=== PATIENT | male | born 1970 | race Caucasian/White ===

== ENCOUNTER 2016-08-19 04:08 | Emergency (ER) | payer OTHER ==
[~2016-08-19] VITALS: Ht 193 cm; Wt 109.1 kg
[~2016-08-19 04:08] MED LIST: BLOOD PRESSURE PILL; CIPRO 500MG TA500 MG PO; DILAUDID 2MG TAB2 MG PO; FLOMAX 0.40.4 MG/CAP PO; MOTRIN 200200 MG/TAB PO; MOTRIN 800800 MG/TAB PO; NO HOME MEDICATIONS; NORCO 325 MG-7.1 TAB PO; PERCOCET 325 MG1 TA2 PO; PHENERGAN 25 TA25 MG PO; PHENERGAN25 MG RC; TYLENOL 325MG325 MG PO; VICODIN 5/300 PO; ZOFRAN 4MG T4 MG/TAB PO; ZOFRAN ODT4 MG PO
[2016-08-19 04:11] VITALS: BP 140/95; TEMP 97.9
[2016-08-19] MEDS ORDERED: TOPROL XL 50MG50 MG PO (04:13)
[2016-08-19 04:54] LABS: BASO % 0.5 % (0.0-2.0); EOS # 0.2 (0.0-0.7); EOS % 1.9 % (0-4.0); GRAN # 4.8 (1.4-6.5); GRAN % 60.6 % (42.2-75.2); HEMOGLOBIN 14.3 g/dl (13.5-18.0); LYMPH # 2.1 (1.2-3.4); LYMPH % 26.9 % (20.0-51.0); MEAN CELL VOLUME 83 fl (80.0-100.0); MEAN CORPUSCULAR HEMOGLOBIN 28 pg (27.0-31.0); MEAN CORPUSCULAR HGB CONC 34 g/dl (33.0-37.0); MEAN PLATELET VOLUME 12.3 fl (7.4-10.4); MONO # 0.8 (0.1-0.6); MONO % 9.7 % (1.7-9.3); PLATELET COUNT 209 K/mm3 (130-400); RED BLOOD COUNT 5.08 M/mm3 (4.20-5.60); REDCELL DISTRIBUTION WIDTH-CV 13.2 % (11.5-14.5); WHITE BLOOD COUNT 7.9 K/mm3 (4.8-10.8)
[2016-08-19 05:05] LABS: ADJUSTED CALCIUM 8.8 mg/dL (8.4-10.2); ALBUMIN 4.2 gm/dL (3.5-5.0); BILIRUBIN,TOTAL 0.7 mg/dL (0.0-1.0); CREATININE, serum 0.97 mg/dL (0.66-1.25); POTASSIUM 4.1 mmol/L (3.4-5.0); TOTAL PROTEIN 7.4 gm/dL (6.4-8.2)
[2016-08-19 05:22] LABS: PH 5 (5-8); SQUAMOUS EPITHELIAL None Seen /hpf; URINE APPEARANCE Clear; URINE BACTERIA None Seen /hpf; URINE BILIRUBIN Negative (NEGATIVE); URINE BLOOD Negative (NEGATIVE); URINE COLOR Yellow; URINE GLUCOSE Negative (NEGATIVE); URINE KETONE Negative (NEGATIVE); URINE RBC 0-2 /hpf; URINE UROBILINOGEN Negative (NEGATIVE); URINE WBC None Seen /hpf
[2016-08-19] MEDS ORDERED: ZOFRAN 4MG T4 MG/TAB PO (05:46)
[2016-08-19] MEDS ORDERED: NORCO 325 MG-51 TAB PO (05:46)
[2016-08-19 06:28] VITALS: PULSE 85
== END 2016-08-19 06:48 | disposition home or self-care (01) ==
LOC: COL.ER 04:08
PROVIDERS: Emergency Medicine
DX: N20.0 Calculus of kidney (principal); Z87.442 Personal history of urinary calculi
CPT/HCPCS: J1885; J2405; J7030

== ENCOUNTER 2016-12-14 23:15 | Emergency (ER) | payer OTHER ==
[~2016-12-14] VITALS: Ht 185.4 cm; Wt 106.8 kg
[~2016-12-14 23:15] MED LIST changes: +NORCO 325 MG-51 TAB PO; +TOPROL XL 50MG50 MG PO
[2016-12-14 23:18] VITALS: TEMP 98
[2016-12-15 00:14] LABS: ADJUSTED CALCIUM 8.7 mg/dL (8.4-10.2); ALBUMIN 4.2 gm/dL (3.5-5.0); BILIRUBIN,TOTAL 0.8 mg/dL (0.0-1.0); CALCIUM 8.9 mg/dL (8.4-10.2); CREATININE, serum 0.96 mg/dL (0.66-1.25); POTASSIUM 3.9 mmol/L (3.4-5.0); TOTAL PROTEIN 7.7 gm/dL (6.4-8.2)
[2016-12-15 00:33] LABS: PH 5 (5-8); SQUAMOUS EPITHELIAL None Seen /hpf; URINE APPEARANCE Clear; URINE BACTERIA None Seen /hpf; URINE BILIRUBIN Negative (NEGATIVE); URINE BLOOD 2+ (NEGATIVE); URINE COLOR Yellow; URINE GLUCOSE Negative (NEGATIVE); URINE KETONE Negative (NEGATIVE); URINE UROBILINOGEN Negative (NEGATIVE); URINE WBC 0-2 /hpf
[2016-12-15 00:35] LABS: BASO # 0.1 (0.0-0.2); BASO % 0.6 % (0.0-2.0); EOS # 0.1 (0.0-0.7); EOS % 1.4 % (0-4.0); GRAN # 5.6 (1.4-6.5); GRAN % 61.7 % (42.2-75.2); HEMATOCRIT 39.5 % (42.0-52.0); HEMOGLOBIN 13.1 g/dl (13.5-18.0); LYMPH # 2.1 (1.2-3.4); LYMPH % 23.3 % (20.0-51.0); MEAN CELL VOLUME 85 fl (80.0-100.0); MEAN CORPUSCULAR HEMOGLOBIN 28 pg (27.0-31.0); MEAN CORPUSCULAR HGB CONC 33 g/dl (33.0-37.0); MEAN PLATELET VOLUME 10.9 fl (7.4-10.4); MONO # 0.9 (0.1-0.6); MONO % 10.4 % (1.7-9.3); PLATELET COUNT 236 K/mm3 (130-400); RED BLOOD COUNT 4.66 M/mm3 (4.20-5.60); REDCELL DISTRIBUTION WIDTH-CV 13.4 % (11.5-14.5); WHITE BLOOD COUNT 9.1 K/mm3 (4.8-10.8)
[2016-12-15] MEDS ORDERED: FLOMAX 0.40.4 MG/CAP PO (00:57)
[2016-12-15] MEDS ORDERED: NORCO 325 MG-51 TAB PO (00:57)
[2016-12-15 01:16] VITALS: BP 137/84; PULSE 77
== END 2016-12-15 01:16 | disposition home or self-care (01) ==
LOC: COL.ER 23:15
PROVIDERS: Emergency Medicine
DX: N23 Unspecified renal colic (principal); I10 Essential (primary) hypertension; Z87.442 Personal history of urinary calculi
CPT/HCPCS: J1885; J7030

== ENCOUNTER 2017-06-29 09:37 | Emergency (ER) | payer OTHER ==
[~2017-06-29] VITALS: Ht 185.4 cm; Wt 109.1 kg
[2017-06-29 09:44] VITALS: TEMP 97.3
[2017-06-29 10:53] LABS: COLLECTION METHOD CLEAN CATCH
[2017-06-29 10:58] LABS: BASO % 0.5 % (0.0-2.0); EOS # 0.1 (0.0-0.7); EOS % 1.8 % (0-4.0); GRAN # 5.1 (1.4-6.5); GRAN % 65.2 % (42.2-75.2); HEMOGLOBIN 13.8 g/dl (13.5-18.0); LYMPH # 1.8 (1.2-3.4); LYMPH % 22.9 % (20.0-51.0); MEAN CELL VOLUME 83 fl (80.0-100.0); MEAN CORPUSCULAR HEMOGLOBIN 28 pg (27.0-31.0); MEAN CORPUSCULAR HGB CONC 34 g/dl (33.0-37.0); MEAN PLATELET VOLUME 11.9 fl (7.4-10.4); MONO # 0.7 (0.1-0.6); MONO % 9.3 % (1.7-9.3); PLATELET COUNT 202 K/mm3 (130-400); RED BLOOD COUNT 4.95 M/mm3 (4.20-5.60); REDCELL DISTRIBUTION WIDTH-CV 13.4 % (11.5-14.5)
[2017-06-29 11:06] LABS: MUCOUS Present /lpf; PH 5 (5-8); SQUAMOUS EPITHELIAL None Seen /hpf; URINE APPEARANCE Clear; URINE BACTERIA None Seen /hpf; URINE BILIRUBIN Negative (NEGATIVE); URINE BLOOD 3+ (NEGATIVE); URINE COLOR Yellow; URINE GLUCOSE Negative (NEGATIVE); URINE KETONE Negative (NEGATIVE); URINE LEUKOCYTE ESTERASE Negative (NEGATIVE); URINE NITRATE Negative (NEGATIVE); URINE PROTEIN(semi-quant) 1+ (NEGATIVE); URINE RBC >50 /hpf; URINE UROBILINOGEN Negative (NEGATIVE)
[2017-06-29 11:13] LABS: BILIRUBIN,TOTAL 0.4 mg/dL (0.0-1.0); CREATININE, serum 0.87 mg/dL (0.66-1.25); TOTAL PROTEIN 7.4 gm/dL (6.4-8.2)
[2017-06-29] MEDS ORDERED: NORCO 325 MG-51 TAB PO (12:31)
[2017-06-29 13:29] VITALS: BP 160/113; PULSE 71
== END 2017-06-29 13:39 | disposition home or self-care (01) ==
LOC: COL.ER 09:37
PROVIDERS: Nurse Practitioner Primary Care
DX: N21.1 Calculus in urethra (principal); I10 Essential (primary) hypertension; Z87.442 Personal history of urinary calculi
CPT/HCPCS: J1170; J7030; Q9967

== ENCOUNTER 2021-07-22 15:01 | Emergency (ER) | payer BC ==
[~2021-07-22] VITALS: Ht 185.4 cm; Wt 109.5 kg
[2021-07-22 15:25] VITALS: TEMP 98
[2021-07-22 16:10] LABS: COLLECTION METHOD CLEAN CATCH
[2021-07-22 16:12] LABS: BASO # 0.1 K/mm3 (0.0-0.2); BASO % 0.7 % (0.0-2.0); EOS # 0.1 K/mm3 (0.0-0.7); EOS % 1.7 % (0.0-4.0); GRAN # 5.3 K/mm3 (1.4-6.5); GRAN % 63.3 % (42.2-75.2); HEMATOCRIT 43.1 % (42.0-52.0); HEMOGLOBIN 14.5 g/dl (13.5-18.0); LYMPH # 2.2 K/mm3 (1.2-3.4); MEAN CELL VOLUME 84 fl (80.0-100.0); MEAN CORPUSCULAR HEMOGLOBIN 28 pg (27-31); MEAN CORPUSCULAR HGB CONC 34 g/dl (33.0-37.0); MEAN PLATELET VOLUME 12.2 fl (7.4-10.4); MONO # 0.7 K/mm3 (0.1-0.6); MONO % 7.9 % (1.7-9.3); PLATELET COUNT 192 K/mm3 (130-400); RED BLOOD COUNT 5.16 M/mm3 (4.20-5.60); REDCELL DISTRIBUTION WIDTH-CV 13.1 % (11.5-14.5)
[2021-07-22 16:17] LABS: PH 5 (5-8); SQUAMOUS EPITHELIAL 0-2 /hpf (0-10); URINE APPEARANCE Clear (CLEAR/HAZY); URINE BACTERIA None Seen /hpf (NONE SEEN); URINE BILIRUBIN Negative (NEGATIVE); URINE BLOOD Negative (NEGATIVE); URINE COLOR Yellow (YELLOW); URINE GLUCOSE Negative (NEGATIVE); URINE KETONE Negative (NEGATIVE); URINE LEUKOCYTE ESTERASE Negative (NEGATIVE); URINE NITRATE Negative (NEGATIVE); URINE PROTEIN(semi-quant) 1+ (NEGATIVE); URINE RBC None Seen /hpf (0-2); URINE UROBILINOGEN Negative (NEGATIVE)
[2021-07-22 16:27] LABS: ALBUMIN 3.7 gm/dL (3.5-5.0); BILIRUBIN,TOTAL 0.4 mg/dL (0.2-1.2); C-REACTIVE PROTEIN 0.44 mg/dL (0.00-0.50); CALCIUM 8.7 mg/dL (8.4-10.2); CREATININE, serum 1.07 mg/dL (0.72-1.25); POTASSIUM 4.1 mmol/L (3.5-4.5); TOTAL PROTEIN 7.2 gm/dL (6.2-8.1)
[2021-07-22 17:27] VITALS: BP 158/109; PULSE 88
== END 2021-07-22 17:29 | disposition home or self-care (01) ==
LOC: COL.ER 15:01
PROVIDERS: Physician Assistant
DX: M54.50 Low back pain, unspecified (principal); Z87.442 Personal history of urinary calculi

== ENCOUNTER 2023-10-11 02:06 | Emergency (ER) | payer BC ==
[~2023-10-11] VITALS: Ht 185.4 cm; Wt 113.6 kg
[2023-10-11] MEDS ORDERED: dexAMETHasone 10 MG/ML VIAL PO ONE (02:30)
[2023-10-11] MEDS ORDERED: diphenhydrAMINE 50 MG/ML 1 ML VIAL IM ONE (02:30)
[2023-10-11 03:13] LABS: BASO # 0.1 K/mm3 (0.0-0.2); BASO % 0.8 % (0.0-2.0); EOS # 0.2 K/mm3 (0.0-0.7); EOS % 2.4 % (0.0-4.0); GRAN # 5.5 K/mm3 (1.4-6.5); GRAN % 59.3 % (42.2-75.2); HEMATOCRIT 41.5 % (42.0-52.0); HEMOGLOBIN 13.7 g/dl (13.5-18.0); LYMPH # 2.5 K/mm3 (1.2-3.4); LYMPH % 26.4 % (20.0-51.0); MEAN CELL VOLUME 86 fl (80.0-100.0); MEAN CORPUSCULAR HEMOGLOBIN 28 pg (27-31); MEAN CORPUSCULAR HGB CONC 33 g/dl (33.0-37.0); MEAN PLATELET VOLUME 11.6 fl (7.4-10.4); MONO % 10.5 % (1.7-9.3); PLATELET COUNT 220 K/mm3 (130-400); RED BLOOD COUNT 4.83 M/mm3 (4.20-5.60); REDCELL DISTRIBUTION WIDTH-CV 13.4 % (11.5-14.5)
[2023-10-11 03:20] LABS: PARTIAL THROMBOPLASTIN TIME 32.2 SECONDS (26.0-37.0)
[2023-10-11 03:28] LABS: ALBUMIN 3.8 g/dL (3.5-5.0); BILIRUBIN,TOTAL 0.4 mg/dL (0.2-1.2); CALCIUM 9.2 mg/dL (8.4-10.2); CREATININE, serum 1.15 mg/dL (0.72-1.25)
[2023-10-11] MEDS ORDERED: levETIRAcetam 1,000 MG in Syringe 1 EACH IV ONE (03:30)
[2023-10-11 04:25] VITALS: BP 103/86; PULSE 78; TEMP 98.3
== END 2023-10-11 04:27 | disposition short-term general hospital (02) ==
LOC: COL.ER 02:06
PROVIDERS: Emergency Medicine
DX: I62.00 Nontraumatic subdural hemorrhage, unspecified (principal)
CPT/HCPCS: J1100; J1200; J1953; J2765

== ENCOUNTER 2023-10-18 23:25 | Emergency (ER) | payer BC ==
[~2023-10-18] VITALS: Ht 182.9 cm; Wt 113.6 kg
[2023-10-18 23:40] VITALS: TEMP 97.4
[2023-10-19] MEDS ORDERED: Iohexol 300 - 100 ML VIAL IV ONE (00:08)
[2023-10-19] MEDS ORDERED: NS 60 ML IV ONE (00:10)
[2023-10-19 01:34] LABS: HEMATOCRIT 41.6 % (42.0-52.0); MEAN CELL VOLUME 86 fl (80.0-100.0); MEAN CORPUSCULAR HEMOGLOBIN 29 pg (27-31); MEAN CORPUSCULAR HGB CONC 34 g/dl (33.0-37.0); MEAN PLATELET VOLUME 12.1 fl (7.4-10.4); PLATELET COUNT 237 K/mm3 (130-400); RED BLOOD COUNT 4.82 M/mm3 (4.20-5.60); REDCELL DISTRIBUTION WIDTH-CV 13.2 % (11.5-14.5)
[2023-10-19 01:36] LABS: ALBUMIN 3.7 g/dL (3.5-5.0); BILIRUBIN,TOTAL 0.4 mg/dL (0.2-1.2); CALCIUM 9.5 mg/dL (8.4-10.2); CREATININE, serum 1.24 mg/dL (0.72-1.25); POTASSIUM 4.5 mEq/L (3.5-4.5); TOTAL PROTEIN 7.4 g/dl (6.2-8.1)
[2023-10-19 02:01] LABS: BAND 1 % (0-10); BASOPHIL 2 % (0-2); EOSINOPHIL 4 % (0-4); LYMPHOCYTE 21 % (20.0-51.0); METAMYELOCYTE 1 % (0-0); NEUTROPHILS 67 % (42.0-75.2); PLATELET ESTIMATE NORMAL (NORMAL)
[2023-10-19 02:12] VITALS: BP 102/69; PULSE 76
== END 2023-10-19 02:12 | disposition home or self-care (01) ==
LOC: COL.ER 23:25
PROVIDERS: Nurse Practitioner Primary Care
DX: R20.2 Paresthesia of skin (principal)
CPT/HCPCS: Q9967

== ENCOUNTER 2023-10-24 21:37 | Emergency (ER) | payer BC ==
[~2023-10-24] VITALS: Ht 185.4 cm; Wt 115.9 kg
[2023-10-24 21:56] VITALS: TEMP 98.8
[2023-10-24] MEDS ORDERED: NS 1,000 ML IV ONE (22:15)
[2023-10-24 22:21] LABS: BASO # 0.1 K/mm3 (0.0-0.2); BASO % 0.6 % (0.0-2.0); EOS # 0.3 K/mm3 (0.0-0.7); EOS % 2.6 % (0.0-4.0); GRAN # 6.6 K/mm3 (1.4-6.5); GRAN % 62.6 % (42.2-75.2); HEMOGLOBIN 13.3 g/dl (13.5-18.0); LYMPH # 2.6 K/mm3 (1.2-3.4); LYMPH % 24.3 % (20.0-51.0); MEAN CELL VOLUME 85 fl (80.0-100.0); MEAN CORPUSCULAR HEMOGLOBIN 28 pg (27-31); MEAN CORPUSCULAR HGB CONC 33 g/dl (33.0-37.0); MEAN PLATELET VOLUME 11.6 fl (7.4-10.4); MONO # 0.9 K/mm3 (0.1-0.6); MONO % 8.8 % (1.7-9.3); PLATELET COUNT 204 K/mm3 (130-400); REDCELL DISTRIBUTION WIDTH-CV 12.9 % (11.5-14.5)
[2023-10-24 22:25] LABS: PROTHROMBIN TIME 11.2 SECONDS (9.7-12.8)
[2023-10-24] MEDS ORDERED: Iohexol 300 - 100 ML VIAL IV ONE (22:35)
[2023-10-24] MEDS ORDERED: NS 50 ML IV ONE (22:36)
[2023-10-24 22:38] LABS: ALBUMIN 3.6 g/dL (3.5-5.0); BILIRUBIN,TOTAL 0.3 mg/dL (0.2-1.2); CALCIUM 10.1 mg/dL (8.4-10.2); CREATININE, serum 1.28 mg/dL (0.72-1.25); POTASSIUM 4.1 mEq/L (3.5-4.5); TOTAL PROTEIN 6.8 g/dl (6.2-8.1)
[2023-10-24 23:15] VITALS: BP 134/95; PULSE 88
== END 2023-10-24 23:25 | disposition home or self-care (01) ==
LOC: COL.ER 21:37
PROVIDERS: Physician Assistant
DX: I62.03 Nontraumatic chronic subdural hemorrhage (principal)
CPT/HCPCS: J7030; Q9967

== ENCOUNTER 2023-10-26 13:42 | Emergency (ER) | payer BC ==
[~2023-10-26] VITALS: Ht 185.4 cm; Wt 113.6 kg
[2023-10-26 13:51] VITALS: TEMP 97
[2023-10-26 14:15] LABS: BASO # 0.1 K/mm3 (0.0-0.2); BASO % 0.7 % (0.0-2.0); EOS # 0.2 K/mm3 (0.0-0.7); EOS % 2.6 % (0.0-4.0); GRAN # 5.4 K/mm3 (1.4-6.5); GRAN % 62.8 % (42.2-75.2); HEMATOCRIT 41.7 % (42.0-52.0); HEMOGLOBIN 13.8 g/dl (13.5-18.0); LYMPH # 2.2 K/mm3 (1.2-3.4); LYMPH % 25.1 % (20.0-51.0); MEAN CELL VOLUME 86 fl (80.0-100.0); MEAN CORPUSCULAR HEMOGLOBIN 29 pg (27-31); MEAN CORPUSCULAR HGB CONC 33 g/dl (33.0-37.0); MEAN PLATELET VOLUME 11.9 fl (7.4-10.4); MONO # 0.7 K/mm3 (0.1-0.6); MONO % 7.9 % (1.7-9.3); PLATELET COUNT 200 K/mm3 (130-400); RED BLOOD COUNT 4.85 M/mm3 (4.20-5.60); REDCELL DISTRIBUTION WIDTH-CV 12.8 % (11.5-14.5)
[2023-10-26 14:26] LABS: ALANINE AMINOTRANSFERASE 35 U/L (0-55); ALKALINE PHOSPHATASE 94 U/L (40-150); ANION GAP 13 mmol/L (7-16); AST,SGOT 18 U/L (5-34); BILIRUBIN,TOTAL 0.5 mg/dL (0.2-1.2); BLOOD UREA NITROGEN 18 mg/dL (8-26); CALCIUM 9.6 mg/dL (8.4-10.2); CHLORIDE 104 mEq/L (98-107); CREATININE, serum 1.21 mg/dL (0.72-1.25); GLUCOSE 182 mg/dL (70-99); MAGNESIUM 1.9 mg/dL (1.6-2.6); POTASSIUM 3.7 mEq/L (3.5-4.5); SODIUM 139 mEq/L (136-145); TOTAL PROTEIN 7.7 g/dl (6.2-8.1)
[2023-10-26 14:33] LABS: TROPONIN-I < 0.010 ng/mL (0.00-0.033)
[2023-10-26 15:10] VITALS: BP 113/79; PULSE 72
== END 2023-10-26 15:10 | disposition home or self-care (01) ==
LOC: COL.ER 13:42
PROVIDERS: Emergency Medicine
DX: R29.818 Other symptoms and signs involving the nervous system (principal)